=== PATIENT | male | born 1945 | race Caucasian/White ===

== ENCOUNTER 2018-04-28 12:43 | Outpatient (RCR) | payer OTHER | END 2018-04-28 13:34 | disposition home or self-care (01) | PROVIDERS: ATTEND Nurse Practitioner | DX: M54.2 Cervicalgia (principal); M25.511 Pain in right shoulder ==

== ENCOUNTER 2018-12-28 13:00 | Outpatient (CLI) | payer OTHER ==
[~2018-12-28] VITALS: Ht 180.3 cm; Wt 92.6 kg
[2018-12-28] MEDS ORDERED: BUDE10.2 IH (13:07)
[2018-12-28] MEDS ORDERED: IPRA4AER IH (13:07)
== END 2018-12-28 13:08 | disposition home or self-care (01) ==
LOC: PREOP 13:00
PROVIDERS: ATTEND Surgery
DX: Z01.818 Encounter for other preprocedural examination (principal)

== ENCOUNTER 2019-01-02 08:49 | Day surgery (SDC) | payer MEDICARE, OTHER ==
[2019-01-02] VITALS (8 sets, daily range): BP systolic 135–167; BP diastolic 58–72
[~2019-01-02] VITALS: Ht 180.3 cm; Wt 92.6 kg
[~2019-01-02 08:49] MED LIST: BUDE10.2 IH; IPRA4AER IH; LACTATED RINGERS 1,000 ML IV ONE
[2019-01-02] MEDS ORDERED: LACTATED RINGERS 1,000 ML IV STA (08:53)
[2019-01-02] MEDS ORDERED: MIDAZOLAM 2 MG/2 ML (VERSED) VIAL ONE (09:48)
[2019-01-02] MEDS ORDERED: PROPOFOL INJECTION 50 ML IV ONE ×3 (09:48→10:40)
--- NOTE | 2019-01-02 09:51 | Progress Note-Pre Operative ---
Pre-Operative Progress Note H&P Reviewed The H&P was reviewed, patient examined and no changes noted. Time Seen by Provider: 09:18 Date H&P Reviewed: Jan 02, 2019 Time H&P Reviewed: 09:19 Pre-Operative Diagnosis: Screening colonoscopy RADHA BENAVIDES DO Jan 02, 2019 09:51
[2019-01-02] MEDS ORDERED: LACTATED RINGERS 1,000 ML IV ONE (09:54)
--- NOTE | 2019-01-02 10:12 | Anesthesia-General Post-Op ---
MAC Patient Condition Mental Status/LOC: Same as Preop Cardiovascular: Satisfactory Nausea/Vomiting: Absent Respiratory: Satisfactory Pain: Controlled Complications: Absent Post Op Complications Complications None Follow Up Care/Instructions Patient Instructions None needed. Anesthesiology Discharge Order Discharge Order Patient is doing well, no complaints, stable vital signs, no apparent adverse anesthesia problems. No complications reported per nursing. CALLUM RAYA CRNA Jan 02, 2019 10:12
--- NOTE | 2019-01-02 11:04 | Progress Note-Post Operative ---
Post-Operative Progess Note Surgeon (s)/Printed Circuit Boards Solder Leveler (s) Surgeon RADHA BENAVIDES DO Printed Circuit Boards Solder Leveler: Nicho Fernandez, MS III Pre-Operative Diagnosis Screening colonoscopy Post-Operative Diagnosis Colon polyps Diverticula Internal hemorrhoids Procedure & Operative Findings Date of Procedure 01/02/19 Procedure Performed/Findings colon with snare Anesthesia Type IV sedation by AGRICULTURAL REAL ESTATE AGENT Estimated Blood Loss Estimated blood loss (mL): scant Specimens/Packing Specimens Removed polyps RADHA BENAVIDES DO Jan 02, 2019 11:04
--- NOTE | 2019-01-02 11:05 | Endoscopy Discharge Instruct ---
Endo Procedure/Findings Findings 1.: Polyp 2.: Diverticulosis 3.: Internal Hemorrhoids Discharge Instructions - Activity: You might feel a little sleepy until tomorrow. This is due to the medicine you received to relax you. Until tomorrow, you should: NOT drive a car, operate machinery or power tools. NOT drink any alcoholic beverages. NOT make any important decisions or sign importortant papers. Do not return to work until tomorrow, unless otherwise instructed. Resume previous activities tomorrow. Diet: Start by taking liquids. If you tolerate liquids, advance to solid food. make an appointment for one week 1.: Colonoscopy in 1 year Notify Physician - If you experience excessive bleeding, unusual abdominal pain, fever, or chest pain, contact your doctor immediately. RADHA BENAVIDES DO Jan 02, 2019 11:05
--- NOTE | 2019-01-03 08:03 | OPERATIVE REPORT ---
DATE OF SERVICE: 01/02/2019 PREOPERATIVE DIAGNOSIS: Screening colonoscopy. POSTOPERATIVE DIAGNOSES: 1. Colon polyps. 2. Diverticula. 3. Internal hemorrhoids. 4. Possible arteriovenous malformation. PROCEDURE: Colonoscopy with snare polypectomy. SURGEON: Jacky Hollins DO VASCULAR NEUROLOGIST: None. ANESTHESIA: IV sedation by EARLY CHILDHOOD EDUCATION COORDINATOR. SPECIMEN: A 3 polyps from the ascending colon, 6 polyps in the rectum, 1 transverse colon polyp, 1 descending colon and 3 polyps in the sigmoid colon. BLOOD LOSS: Scant. FLUIDS: Per anesthesia. POSTOPERATIVE CONDITION: Stable. INDICATION FOR PROCEDURE: The patient is a 73-year-old male, who has never had a colonoscopy, needs one for screening. FINDINGS: The patient had what looked like an AVM in the cecum. He also had multiple polyps, 2 very large ones. We took a total of 14 polyps out. He also had diverticula and some internal hemorrhoids. PROCEDURE NOTE: After informed consent was obtained, the patient was brought to the endoscopy suite, placed in the left lateral decubitus position. He was administered IV sedation by the EARLY CHILDHOOD EDUCATION COORDINATOR who then monitored his vitals the entire time, heart rate, blood pressure and pulse ox. A scope was inserted. Immediately upon entry, noted some small polyps in the rectum and then noted some large polyps in the sigmoid and descending colon, elected to continue all the way up to get to the cecum. In the sigmoid and descending colon, saw some diverticula, took picture of this, able to push all the way into about 150 cm, get to the cecum, took a picture of appendiceal orifice, noted the ileocecal valve and then slowly withdrew the scope, insufflating the circumferential wall looking at the cecum, up into the descending colon and just outside the cecum and ascending colon, saw 3 polyps. Elected to do snare polypectomy and did a snare polypectomy and all 3 of these and suctioned two of them and then the other one was too large to suction out, so I had to pull the scope all the way out with polyps sucked up to the scope, pulled it all the way up to the anus and then passed this off table, reinserted the scope all the way up to the ascending colon and then slowly started withdrawing it up the ascending colon to the hepatic flexure into the transverse colon and transverse colon, saw one large flat polyp, I elected to do a snare polypectomy. I was actually able to suction this out and then continued down to the splenic flexure, into the descending colon and descending colon, saw a large polyp on a stalk, did a snare polypectomy of this and then suctioned this up to the scope and pulled the scope all the way out and then took the polyp off and then continued back up to the point in the descending colon and continued down in the sigmoid. In the sigmoid, saw 3 polyps, two of them are small, one of them was large, able to suction 2 small wounds up and then pulled the large one and pulled the scope completely out and then to go back in and then into the rectum and in the rectum, saw 5 small polyps, here I elected to do a snare polypectomy of them, one large only we had to suction it up to the scope and pulled all the way out and then put the scope back in retroflexed in the rectal vault, saw some internal hemorrhoids, took a picture of this and then removed the scope. The patient tolerated the procedure and recovered in endoscopy suite. Job ID: [id number] DocumentID: [id number] Dictated Date: 01/02/2019 17:36:24 Architectural Examiner Date: 01/03/2019 01:24:51 Dictated By: JACKY HOLLINS DO
== END 2019-01-02 12:00 | disposition home or self-care (01) ==
LOC: ENDO 08:49
PROVIDERS: ATTEND Surgery
DX: Z12.11 Encounter for screening for malignant neoplasm of colon (principal); K63.5 Polyp of colon; D12.5 Benign neoplasm of sigmoid colon; K62.1 Rectal polyp; K57.30 Diverticulosis of large intestine without perforation or abscess without bleeding; K64.8 Other hemorrhoids; M19.90 Unspecified osteoarthritis, unspecified site; F17.210 Nicotine dependence, cigarettes, uncomplicated; Z80.9 Family history of malignant neoplasm, unspecified; Z82.49 Family history of ischemic heart disease and other diseases of the circulatory system; Z81.8 Family history of other mental and behavioral disorders

== ENCOUNTER 2019-01-17 12:21 | Outpatient (CLI) | payer OTHER ==
[~2019-01-17] VITALS: Ht 180 cm; Wt 91.9 kg
[~2019-01-17 12:21] MED LIST changes: -LACTATED RINGERS 1,000 ML IV ONE
[2019-01-17 12:31] VITALS: BP 151/77
[2019-01-17 13:40] LABS: BASOPHILS # (AUTO) 0.1 10^3/uL (0.0-0.1); BASOPHILS % (AUTO) 1 % (0-10); EOSINOPHILS # (AUTO) 0.1 10^3/uL (0.0-0.3); EOSINOPHILS % (AUTO) 1 % (0-10); HEMATOCRIT 46 % (40-54); HEMOGLOBIN 15.7 G/DL (13.3-17.7); LYMPHOCYTES # (AUTO) 2.2 X 10^3 (1.0-4.0); LYMPHOCYTES % (AUTO) 29 % (12-44); MEAN CORPUSCULAR HEMOGLOBIN 32 PG (25-34); MEAN CORPUSCULAR HGB CONC 34 G/DL (32-36); MEAN CORPUSCULAR VOLUME 93 FL (80-99); MEAN PLATELET VOLUME 13.6 FL (7.4-10.4); MONOCYTES # (AUTO) 1.2 X 10^3 (0.0-1.0); MONOCYTES % (AUTO) 16 % (0-12); NEUTROPHILS # (AUTO) 4.1 X 10^3 (1.8-7.8); NEUTROPHILS % (AUTO) 54 % (42-75); PLATELET COUNT 142 10^3/uL (130-400); RED CELL DISTRIBUTION WIDTH 14.9 % (10.0-14.5); WHITE BLOOD COUNT 7.7 10^3/uL (4.3-11.0)
== END 2019-01-17 15:30 | disposition home or self-care (01) ==
LOC: PREOP 12:21
PROVIDERS: ATTEND Surgery
DX: Z01.812 Encounter for preprocedural laboratory examination (principal); C18.9 Malignant neoplasm of colon, unspecified
CPT/HCPCS: 36415; 85025; 86850; 86900; 86901; 87081

== ENCOUNTER 2019-01-19 09:35 | Inpatient (IN) | payer OTHER ==
[2019-01-19] VITALS (12 sets, daily range): BP systolic 111–174; BP diastolic 65–93
[~2019-01-19] VITALS: Ht 180 cm; Wt 99.6 kg
[2019-01-19] MEDS ORDERED: ceFAZolin 2 GM IV Premixed 50 ML IV ONE (10:00)
[2019-01-19] MEDS ORDERED: CATHETER FLUSH 10 ML SYR IV PRN (10:00)
[2019-01-19] MEDS: LACTATED RINGERS 1,000 ML IV PRN ×4 (10:45→15:41)
[2019-01-19] MEDS ORDERED: ONDANSETRON 4 MG/2 ML (SDV) Z0FRAN ONE (11:21)
[2019-01-19] MEDS ORDERED: DEXAMETHASONE 10 MG/ML (DECADRON) 1 ML VIAL ONE (11:21)
[2019-01-19] MEDS ORDERED: SEVOFLURANE (ULTANE) 15 ML INHAL SOLN ONE ×5 (11:21→14:36)
[2019-01-19] MEDS ORDERED: fentaNYL INJECTION 100 MCG/2 ML AMP ONE (11:21)
[2019-01-19] MEDS ORDERED: proPOfol 200 MG/20 ML (DIPRIVAN) VIAL IV ONE (11:21)
[2019-01-19] MEDS ORDERED: LIDOCAINE PF 2% 5 ML (XYLOCAINE) VIAL ONE (11:21)
[2019-01-19] MEDS ORDERED: ROCURONIUM 10 MG/ML 5 ML SYRINGE IV ONE ×2 (11:21→14:01)
[2019-01-19] MEDS ORDERED: BUP/EPI 0.5% 1:200,000 (SENSORCAINE) 30 ML VIAL ONE (11:38)
[2019-01-19] MEDS ORDERED: HYDROmorphone 2 MG/ML VIAL (DILAUDID) ONE (13:29)
[2019-01-19] MEDS ORDERED: NEOSTIGMINE 3 MG/3 ML VIAL ONE (14:36)
[2019-01-19] MEDS ORDERED: GLYCOPYRROLATE 0.2 MG/ML (ROBINUL) 2 ML VIAL ONE (14:36)
[2019-01-19] MEDS ORDERED: BUPIVACAINE 0.5% 30 ML (SENSORCAINE) VIAL ONE (14:36)
[2019-01-19] MEDS ORDERED: ONDANSETRON 4 MG/2 ML (SDV) Z0FRAN IVP PRN (16:00)
[2019-01-19] MEDS ORDERED: HYDROmorphone 2 MG/ML VIAL (DILAUDID) IV ONE (16:00)
[2019-01-19] MEDS ORDERED: morphine INJ 10 MG/ML 1ML (SYR OR VIAL) IVP ONE (16:00)
[2019-01-19] MEDS ORDERED: MEPERIDINE (DEMEROL) INJ 50 MG/ML IVP ONE (16:00)
--- NOTE | 2019-01-19 16:43 | Progress Note-Pre Operative ---
Pre-Operative Progress Note H&P Reviewed The H&P was reviewed, patient examined and no changes noted. Time Seen by Provider: 11:01 Date H&P Reviewed: Jan 19, 2019 Time H&P Reviewed: 11:02 Pre-Operative Diagnosis: Descending colon CA RADHA BENAVIDES DO Jan 19, 2019 16:43
--- NOTE | 2019-01-19 16:44 | Progress Note-Post Operative ---
Post-Operative Progess Note Surgeon (s)/Director Health (s) Surgeon RADHA BENAVIDES DO Director Health: Lizbeth Pre-Operative Diagnosis Descending colon CA Post-Operative Diagnosis same pending path Procedure & Operative Findings Date of Procedure 01/19/19 Procedure Performed/Findings Lap hand assisted Left colon resection Anesthesia Type GET Estimated Blood Loss Estimated blood loss (mL): less than 100ml Specimens/Packing Specimens Removed Descending colon and sigmoid RADHA BENAVIDES DO Jan 19, 2019 16:44
[2019-01-19] MEDS ORDERED: morphine INJ 4 MG/ML 1 ML (VIAL/SYRINGE) IVP PRN (16:45)
--- NOTE | 2019-01-19 16:55 | NUR ---
TRANSFERRED FROM [facility] PER BED. X [address] [facility]. [employer]. [facility] TO [facility]. WITH ISLAND DRESSING WITH SHADING OF REDDISH DRAINAGE. CHERR Addendum: 01/19/19 at 2013 by MARY MALLORY RN ALERT AND COOPERATIVE. DENIES PAIN AT THIS TIME. AT BEDSIDE. ICE TO ABD. INC. AREA. DEEP BREATHING ENCOURAGED. RICHEY CATH WITH CLEAR YELLOW URINE NOTED. SALINE LOCK TO RIGHT F/A.. IV FLUIDS TO LEFT F/A.
--- NOTE | 2019-01-19 17:51 | Anesthesia-General Post-Op ---
General Patient Condition Mental Status/LOC: Same as Preop Cardiovascular: Satisfactory Nausea/Vomiting: Absent Respiratory: Satisfactory Pain: Controlled Complications: Absent Post Op Complications Complications None Follow Up Care/Instructions Patient Instructions None needed. Anesthesia/Patient Condition Patient Condition Patient is doing well, no complaints, stable vital signs, no apparent adverse anesthesia problems. No complications reported per nursing. ANSON KNOX CRNA Jan 19, 2019 17:51
[2019-01-19] MEDS: KETOROLAC 30 MG/ML VIAL IVP SCH ×2 (17:53→23:53)
[2019-01-19] MEDS: ACETAMINOPHEN 500 MG TAB (TYLENOL) PO SCH (17:54)
[2019-01-19] MEDS: ENOXAPARIN 40 MG/0.4 ML (LOVENOX) SYR SC SCH (17:54)
[2019-01-19] MEDS: LACTATED RINGERS 1,000 ML IV SCH (17:54)
[2019-01-19] MEDS: ceFAZolin 2 GM IV Premixed 50 ML IV SCH (20:18)
[2019-01-20 00:20] VITALS: BP 119/70
--- NOTE | 2019-01-20 01:28 | OPERATIVE REPORT ---
DATE OF SERVICE: 01/19/2019 PREOPERATIVE DIAGNOSIS: Descending colon cancer. POSTOPERATIVE DIAGNOSIS: Descending colon cancer, pending pathology. PROCEDURE: 1. Laparoscopic hand assisted left colon resection. 2. Takedown of splenic flexure. SURGEON: Radha Hollins DO PEDIATRIC PHYSICAL THERAPIST: Son Nieves DO ANESTHESIA: General endotracheal tube. SPECIMEN: Portion of sigmoid colon and descending colon. BLOOD LOSS: Less than 100 mL. FLUIDS: Per anesthesia. POSTOPERATIVE CONDITION: Stable. INDICATION FOR PROCEDURE: The patient is a 73-year-old male, who unfortunately had a colonoscopy with removal of a polyp, which turned out to be cancer. FINDINGS: The patient had a colon removed and sent to pathology. PROCEDURE NOTE: After informed consent was obtained, the patient was brought to the operating room, placed on the table in lithotomy position. He was sterilely prepped and draped in normal fashion. I made an incision in the midline from just below his umbilicus with a #15 blade, carried down through the skin into subcutaneous tissue, deepened down through subcutaneous tissue with Bovie electrocautery down to fascia. Fascia was incised with Bovie electrocautery and bluntly entered the abdomen, swept a finger around and increased this incision superiorly and inferiorly enough to be able to get my hand in there and then placed a wound protector and then attached a Gelfoam port to this. Just prior to this in the right lower quadrant, infiltrated the skin with local, made an incision with #11 blade and then placed the VersaStep system under direct visualization with a malleable to protect the bowel. This was placed easily and then placed the trocar port. I then placed a GelPort and then created pneumoperitoneum and then placed the port in the left lower quadrant. Again using local lidocaine, 11 blade for stab incision and VersaStep system, all done under direct visualization. The patient was placed slightly Trendelenburg. He had a lot of adhesions, the colon was attached to the left side. I started taking these down with blunt dissection as well as Bovie electrocautery going along the white line of Toldt and then dissecting up and going up and around, taking down the splenic flexure, coming through the splenocolic ligament, rotating everything into the midline using blunt dissection and LigaSure to help move this in. Once we felt like we got it freed up enough then picked a point right at the sacral promontory and got under the distal portion of sigmoid and possibly high rectal area under the mesentery, through the mesentery with blunt dissection and then brought a AMALIA 60 in across, clamped and fired without almost all except for the small corners, so I put another Endo AMALIA 45 across the corner and then removed this. Then started coming up the mesentery, removing the mesentery of the sigmoid and descending colon with the LigaSure, clamping, coagulating and transecting and in a stepwise fashion coming all the way up to about 4 to 6 cm below the splenic flexure, came across it and elected once we had freed all this up, opened the Gelport and brought this out through the abdominal wall and then came across this with a AMALIA, removed this. I then went off the back table to look and found the old site, marked this and marked the proximal edge of the colon as well. Then using a pursestring applicator to the most proximal portion of the descending colon, placed a pursestring and then placed a 28 mm anvil in here, sutured in place with a pursestring, had to do a little bit more dissection to help bring this down to be able to get this down into the pelvis, I then came down in the pelvis, but relatively easily I went down below, dilated the rectum and the anus with 25, 28 and then 31 dilator and then brought in the 28 EEA stapler, came up to the previous staple line and then brought the trocar through. Dr. Nieves , it was up above. He then attached the anvil to the trocar. We then tightened this down until it was in the green line, held for 30 seconds and then fired, held for 20 seconds and then carefully turned the stapler device to full turns and then easily removed the anvil. When it came out, we had 2 good donuts. At this point, then placed a rigid sigmoidoscope and insufflated with air and had fluid in the pelvis, thought maybe we had seen some bubbles, but then may have just come from under the intestine because when we kept insufflated, there was no more bubbles coming out, so there is no leaks at this point and we looked again after suctioning all the fluid out, looked at the staple line. The staple line looked good. Two pieces of intestine looked viable. During this time, the patient had been in Trendelenburg. He was placed supine, removed all ports under direct visualization, closed the midline incision with a #1 double stranded PDS suture running from superior portion to inferior portion tying to itself, copiously irrigated all incisions with normal saline and then closed all incisions with ping. Area was cleaned and dried, dressing was placed. The patient tolerated the procedure and transferred to recovery room in stable condition. Sponge, instrument and needle count correct at the end of the case. Dr. Nieves assisted in this case helping to make incisions, close incisions, identify anatomy, hold anatomy out of the way. Job ID: [id number] DocumentID: [id number] Dictated Date: 01/19/2019 18:41:57 Foot Miter Operator Date: 01/20/2019 00:03:11 Dictated By: RADHA HOLLINS DO
[2019-01-20] MEDS: ACETAMINOPHEN 500 MG TAB (TYLENOL) PO SCH ×3 (01:46→17:04)
[2019-01-20] MEDS: LACTATED RINGERS 1,000 ML IV SCH ×3 (01:48→18:05)
[2019-01-20 04:10] VITALS: BP 135/73
[2019-01-20] MEDS: KETOROLAC 30 MG/ML VIAL IVP SCH ×4 (05:13→23:12)
[2019-01-20] MEDS: ceFAZolin 2 GM IV Premixed 50 ML IV SCH (05:14)
[2019-01-20 07:48] VITALS: BP 147/73
[2019-01-20 11:33] VITALS: BP 150/69
--- NOTE | 2019-01-20 13:57 | Progress Note - Surgery ---
MACO BELL,MED STUDENT 01/20/19 1357: Subjective Date Seen by a Provider: Jan 20, 2019 Time Seen by a Provider: 07:15 Subjective/Events-last exam Patient seen and examined. 1 day S/P left colon resection. He states he feels well this morning. He has abdominal pain that is a 3/10 on the pain scale. He has not passed gas or had a bowel movement at this time. He denies any nausea or vomiting and states he has been tolerated the clear liquid diet well. Review of Systems General: No Chills, No Fatigue Pulmonary: No Dyspnea, No Cough Cardiovascular: No: Chest Pain Gastrointestinal: Abdominal Pain; No: Nausea, Vomiting, Diarrhea Genitourinary: No Dysuria, No Incontinence, No Hematuria Neurological: No: Weakness, Numbness, Confusion Objective Exam Vital Signs Date Time Temp Pulse Resp B/P (MAP) Pulse Ox O2 Delivery O2 Flow Rate FiO2 01/20/19 11:33 36.5 79 18 150/69 (96) 96 Room Air 01/20/19 09:00 95 Room Air 01/20/19 07:48 35.8 87 22 147/73 (97) 97 Nasal Cannula 1.00 01/20/19 04:10 36.6 80 18 135/73 (93) 96 Room Air 01/20/19 00:20 36.9 85 20 119/70 (86) 96 Room Air 01/19/19 21:00 Nasal Cannula 2.00 01/19/19 20:59 36.3 96 20 143/67 (92) 97 Room Air 01/19/19 19:30 Nasal Cannula 2.00 01/19/19 17:29 36.0 100 20 174/85 97 Room Air 01/19/19 17:13 36.0 100 20 174/85 (114) 97 Room Air 01/19/19 16:50 36.0 100 20 174/85 (114) 97 Nasal Cannula 2.00 01/19/19 16:50 Nasal Cannula 2 01/19/19 16:40 36.7 9 168/92 (117) 97 Nasal Cannula 2 01/19/19 16:30 12 158/86 (110) 100 OxyMask 10 01/19/19 16:20 12 172/93 (119) 100 OxyMask 10 01/19/19 16:20 OxyMask 10 01/19/19 16:10 12 135/71 (92) 96 OxyMask 10 01/19/19 16:00 11 136/67 (90) 95 OxyMask 10 01/19/19 15:55 13 134/70 (91) 97 OxyMask 10 01/19/19 15:47 OxyMask 10 01/19/19 15:47 36.8 14 111/65 (80) 96 OxyMask 10 I & O 01/20/19 07:00 Intake Total 6580 ml Output Total 1200 ml Balance 5380 ml Capillary Refill : General Appearance: No Apparent Distress, WD/WN HEENT: PERRL/EOMI, Moist Mucous Membranes Neck: Non Tender Respiratory: Lungs Clear, Normal Breath Sounds, No Accessory Muscle Use Cardiovascular: Regular Rate, Rhythm, No Murmur Peripheral Pulses: 2+ Radial Pulses (R), 2+ Radial Pulses (L) Gastrointestinal: normal bowel sounds; No guarding, No rebound; tenderness (mildly tender and slightly firm) Extremity: No Calf Tenderness, No Pedal Edema Neurologic/Psychiatric: Alert, Oriented x3 Skin: Normal Color, Other (midline abdominal incision closed with ping) Assessment/Plan Assessment/Plan Assessment/Plan S/P left colon resection Continue pain control and IVF as needed. Encouraged use of incentive spirometer and increased ambulation. Will increase diet as tolerated and await return of bowel function. Discussed smoking cessation. Follow-up with Dr. Hollins in the clinic next week Clinical Quality Measures DVT/VTE Risk/Contraindication: Risk Factor Score Per Nursin RFS Level Per Nursing on Admit: 3=High JACKY HOLLINS DO 01/20/19 1432: Subjective Time Seen by a Provider: 10:50 Subjective/Events-last exam Pt was asking when he coudl go home, tolerating clears and wondering about increasing diet. Objective Exam Gastrointestinal: soft; No distended Assessment/Plan Assessment/Plan Assessment/Plan increase ambulation and IS use, will increase diet, possibly home tomorrow if his pain is controlled with oral meds. Supervisory-Addendum Brief Verification & Attestation Participated in pt care: history, MDM, physical Personally performed: exam, history, MDM Care discussed with: Medical Student Procedures: n/a Verification and Attestation of Medical Student E/M Service A medical student performed and documented this service in my presence. I reviewed and verified all information documented by the medical student and made modifications to such information, when appropriate. I personally performed the physical exam and medical decision making. Jacky Hollins, Jan 20, 2019,14:32 MACO BELL,MED STUDENT Jan 20, 2019 13:57 JACKY HOLLINS DO Jan 20, 2019 14:32
--- NOTE | 2019-01-20 16:00 | NUR ---
MOD. AMT. BLEEDING FROM MIDLINE INC. BABATUNDE CLEAR WITH MILD BLEEDING NOTED FROM LOWER INC. AREA. DRESSING CHANGED WITH FOLDED 4 X 4'S AND ISLAND DRESSING.
[2019-01-20 16:20] VITALS: BP 139/51
--- NOTE | 2019-01-20 16:31 | NUR ---
Pastoral care visit.
--- NOTE | 2019-01-20 17:30 | NUR ---
MOD. AMT. BLEEDING FROM INC. AREA. DRESSING CHANGED . DR. BENAVIDES NOTIFIED, LOVEJONX DC'D PER ORDERS. DR. BENAVIDES STATED TO CONTINUE THE TORADOL IV ORDERED.
[2019-01-20] MEDS: ENOXAPARIN 40 MG/0.4 ML (LOVENOX) SYR SC SCH (18:05)
[2019-01-20 19:35] VITALS: BP 128/69
[2019-01-21] VITALS: BP 142/80
[2019-01-21] MEDS: ACETAMINOPHEN 500 MG TAB (TYLENOL) PO SCH ×2 (01:50→09:49)
[2019-01-21 04:00] VITALS: BP 144/78
[2019-01-21] MEDS: KETOROLAC 30 MG/ML VIAL IVP SCH ×2 (04:54→10:50)
[2019-01-21 08:00] VITALS: BP 167/77
--- NOTE | 2019-01-21 08:36 | Progress Note - Surgery ---
MACO BELL,MED STUDENT 01/21/19 0836: Subjective Date Seen by a Provider: Jan 21, 2019 Time Seen by a Provider: 07:15 Subjective/Events-last exam Day 2 S/P left colon resection. Patient seen and examined. Mr Galloway states he is feeling well this morning. He has 2 bowel movements overnight and 1 this morning. He has been up several times ambulating the halls and states he has continues to use his IS. He notes some abdominal pain that is a 2-3/10 on the pain scale and worsened with coughing. He denies and nausea/vomiting and states he is tolerating his clear liquid diet well at this time. Review of Systems General: No Chills, No Fatigue HEENT: No Head Aches Pulmonary: No Dyspnea; Cough (chronic) Cardiovascular: No: Chest Pain, Lt Headedness Gastrointestinal: Abdominal Pain; No: Nausea, Vomiting, Diarrhea, Constipation Genitourinary: No Dysuria, No Incontinence, No Hematuria Neurological: No: Weakness, Confusion Objective Exam Vital Signs Date Time Temp Pulse Resp B/P (MAP) Pulse Ox O2 Delivery O2 Flow Rate FiO2 01/21/19 04:00 36.8 84 18 144/78 (100) 94 Room Air 01/21/19 00:00 36.8 81 16 142/80 (100) 95 Room Air 01/20/19 20:10 Room Air 01/20/19 19:35 36.8 81 18 128/69 (88) 95 Room Air 01/20/19 16:20 37.0 85 20 139/51 (80) 95 Room Air 01/20/19 11:33 36.5 79 18 150/69 (96) 96 Room Air 01/20/19 09:00 95 Room Air I & O 01/21/19 07:00 Intake Total 1510 ml Output Total 400 ml Balance 1110 ml Capillary Refill : General Appearance: No Apparent Distress, WD/WN HEENT: PERRL/EOMI, Moist Mucous Membranes Neck: Non Tender Respiratory: Chest Non Tender, Lungs Clear, Normal Breath Sounds, No Accessory Muscle Use Cardiovascular: Regular Rate, Rhythm, No Murmur Peripheral Pulses: 2+ Radial Pulses (R), 2+ Radial Pulses (L) Gastrointestinal: normal bowel sounds; No distended, No guarding, No rebound, No tenderness; other (mild firmness ) Extremity: No Calf Tenderness, No Pedal Edema Neurologic/Psychiatric: Alert, Oriented x3 Skin: Normal Color, Other (midline abdominal incision closed with ping) Assessment/Plan Assessment/Plan Assessment/Plan S/P Left Colon Resection Continue pain control as needed. Encouraged increase use of IS and increase in ambulation. Increase diet as tolerated. Follow-up with Dr. Hollins in clinic in 1 week Clinical Quality Measures DVT/VTE Risk/Contraindication: Risk Factor Score Per Nursin RFS Level Per Nursing on Admit: 3=High NICHOLAS LUQUE DO 01/21/19 1438: Subjective Subjective/Events-last exam having bm. tolerating diet. +bm and flatus. pain controlled. no n/v fever sweats chills shortness of breath or chest pain. wanting to go home. Objective Exam General Appearance: No Apparent Distress, WD/WN HEENT: PERRL/EOMI Neck: Full Range of Motion, Non Tender Respiratory: Chest Non Tender, No Accessory Muscle Use, No Respiratory Distress Cardiovascular: Regular Rate, Rhythm Gastrointestinal: normal bowel sounds, soft, tenderness (incisional minimal, incisons c/d/i) Neurologic/Psychiatric: Alert, Oriented x3 Skin: Normal Color Lymphatic: No Adenopathy Assessment/Plan Assessment/Plan Assessment/Plan S/P Left Colon Resection Continue pain control as needed. Encouraged increase use of IS and increase in ambulation. Increase diet as tolerated. If tolerates diet can dc home and follow-up with Dr. Hollins in clinic in 1 week Supervisory-Addendum Brief Verification & Attestation Participated in pt care: history, MDM, physical Personally performed: exam, history, MDM, supervision of care Care discussed with: Medical Student Procedures: n/a Results interpretation: Verified all documentation Verification and Attestation of Medical Student E/M Service A medical student performed and documented this service in my presence. I reviewed and verified all information documented by the medical student and made modifications to such information, when appropriate. I personally performed the physical exam and medical decision making. Nicholas Luque, Jan 21, 2019,14:38 MACO BELLMED STUDENT Jan 21, 2019 08:36 NICHOLAS LUQUE DO Jan 21, 2019 14:38
[2019-01-21] MEDS: LACTATED RINGERS 1,000 ML IV SCH (09:46)
[2019-01-21] MEDS ORDERED: HYDROcodone/APAP 5 MG/325 MG (LORTAB) TAB PO PRN (10:45)
[2019-01-21 12:00] VITALS: BP 141/67
[2019-01-21] MEDS ORDERED: DOCU-143 PO (13:19)
[2019-01-21] MEDS ORDERED: ACHD5005 PO (13:19)
--- NOTE | 2019-01-21 13:20 | Discharge Inst-Simple/Standard ---
Discharge Inst-Standard Discharge Medications New, Converted or Re-Newed RX: RX on Chart Patient Instructions/Follow Up Plan of Care/Instructions/FU: [address] Hollins Activity as Tolerated: No Discharge Diet: Soft Diet Other Inst to Patient Follow up Appt: Make appointment for 1 week. Instructions: No lifting greater than 10 pounds. No strenuous activity. May shower in 24 hours, no tub bath or soaking. Use incentive spirometer at home as directed. No Smoking Skin/Wound Care: May remove bandages. Keep area clean and dry. Symptoms to Report: Appetite Changes, Extremity Discoloration, Numbness/Tingling, Swelling Increased, Bleeding Excessive, Eyesight Changes, Pain Increased, Urine Color Change, Constipation(Persistent), Fever over 101 degree F, Pain/Pressure in chest, Urinating Difficulty, Cough Up/Vomit Blood, Heart Beat Irreg/Pounding, Pain/Pressure in jaw, Vaginal Bleeding Increase, Cramps in feet or legs, Li ghtheadedness, Pain/Pressure in shoulder, Diarrhea(Persistent), Memory Changes Suddenly, Questions/Concerns, Weight gain consecutive days, Dizziness/Fainting, Nausea/Vomiting, Shortness of Breath, Weight gain over 2 pounds If questions or concerns contact your physician Or seek help at emergency department. NICHOLAS LUQUE DO Jan 21, 2019 13:20
== END 2019-01-21 14:20 | disposition home or self-care (01) | DRG 331 ==
LOC: 4TH 09:35 → SURG 09:36 → 4TH 16:49
PROVIDERS: ADMIT Surgery; ATTEND Surgery
PROC: 0DNG0ZZ Release Left Large Intestine, Open Approach (ICD-10-PCS; principal; 2019-01-19 12:53)
PROC: 0DTG0ZZ Resection of Left Large Intestine, Open Approach (ICD-10-PCS; principal; 2019-01-19 12:53)
DX: C18.6 Malignant neoplasm of descending colon (principal); F17.210 Nicotine dependence, cigarettes, uncomplicated
CPT/HCPCS: 86850; 86900; 86901; 94664

== ENCOUNTER 2019-02-09 13:12 | Outpatient (RCR) | payer OTHER ==
[~2019-02-09 13:12] MED LIST changes: +ACHD5005 PO; +DOCU-143 PO
[2019-02-09 14:36] LABS: BASOPHILS % (AUTO) 1 % (0-10); EOSINOPHILS # (AUTO) 0.1 10^3/uL (0.0-0.3); EOSINOPHILS % (AUTO) 1 % (0-10); HEMATOCRIT 42 % (40-54); LYMPHOCYTES # (AUTO) 1.9 X 10^3 (1.0-4.0); LYMPHOCYTES % (AUTO) 23 % (12-44); MEAN CORPUSCULAR HEMOGLOBIN 31 PG (25-34); MEAN CORPUSCULAR HGB CONC 33 G/DL (32-36); MEAN CORPUSCULAR VOLUME 93 FL (80-99); MEAN PLATELET VOLUME 12.4 FL (7.4-10.4); MONOCYTES # (AUTO) 1.3 X 10^3 (0.0-1.0); MONOCYTES % (AUTO) 16 % (0-12); NEUTROPHILS # (AUTO) 4.9 X 10^3 (1.8-7.8); NEUTROPHILS % (AUTO) 60 % (42-75); PLATELET COUNT 168 10^3/uL (130-400); RED CELL DISTRIBUTION WIDTH 14.5 % (10.0-14.5); WHITE BLOOD COUNT 8.2 10^3/uL (4.3-11.0)
[2019-02-09 15:00] LABS: ALANINE AMINOTRANSFERASE 27 U/L (0-55); ALBUMIN 3.9 GM/DL (3.2-4.5); ALKALINE PHOSPHATASE 80 U/L (40-136); BILIRUBIN,TOTAL 0.4 MG/DL (0.1-1.0); BUN/CREATININE RATIO 16; CALCIUM 9.4 MG/DL (8.5-10.1); CARBON DIOXIDE 23 MMOL/L (21-32); CHLORIDE 103 MMOL/L (98-107); CREATININE SERUM 0.85 MG/DL (0.60-1.30); GFR ESTIMATED > 60; GLUCOSE 102 MG/DL (70-105); POTASSIUM 4.3 MMOL/L (3.6-5.0); SODIUM 137 MMOL/L (135-145); TOTAL PROTEIN 7.3 GM/DL (6.4-8.2)
== END 2019-04-24 14:46 | disposition home or self-care (01) ==
LOC: ONC 13:12
PROVIDERS: ATTEND Internal Medicine Hematology & Oncology
DX: C18.6 Malignant neoplasm of descending colon (principal)
CPT/HCPCS: 36415; 80053; 82378; 85025; 99214

== ENCOUNTER → 2019-02-13 | Outpatient (CLI) | payer OTHER ==
[~2019-02-13] MED LIST changes: +CATHETER FLUSH 10 ML SYR IV PRN; +HOLD METFORMIN - RECEIVED CONTRAST 20 ML VIAL IV SCH; +IOHEXOL 350 MG/ML 100 ML (OMNIPAQUE 350) VIAL IV ONE; +NS 100 ML (IVPB) BAG IV ONE
--- NOTE | 2019-02-13 13:38 | Diagnostic Imaging Report ---
PROCEDURE: CT chest with contrast, CT abdomen and pelvis with and without contrast. TECHNIQUE: Pre and post intravenous contrast axial imaging of the abdomen and pelvis and post contrast axial imaging of the chest were performed. Auto Exposure Controls were utilized during the CT exam to meet ALARA standards for radiation dose reduction. INDICATION: Followup colectomy for colon cancer. COMPARISON: None. FINDINGS: CT CHEST: The heart size is within normal limits. No pericardial effusion is present. There is calcified aortic and coronary atherosclerotic plaque without aneurysm. There is no mediastinal, hilar, or axillary lymphadenopathy. A 0.2 cm nodule is seen in the right midlung (image 38/series 3). No suspicious pulmonary nodules are visualized. No focal consolidation or pulmonary mass. No pneumothoraces are present. No central endobronchial obstructing lesions are identified. There are no pleural effusions. The osseous structures demonstrate degenerative changes without focal lytic or blastic lesions. CT ABDOMEN AND PELVIS: A nodule is seen in the right adrenal gland measuring 2.0 cm demonstrating fat density on noncontrast CT. Two small nodules are seen in the left adrenal gland, both measuring 1.1 cm. The liver, spleen, pancreas, and kidneys have a normal appearance. There is no pathologically enlarged mesenteric or retroperitoneal adenopathy. Post surgical changes of sigmoid colon resection are visualized. No evidence of bowel obstruction. No free fluid or free air is seen in the abdomen or pelvis. No evidence of pathologically enlarged lymphadenopathy. There is calcified aortic and iliac atherosclerotic plaque without evidence of aneurysm. A retroaortic left renal vein is noted. Inflammatory changes are noted in the superficial soft tissues of the left abdomen, likely representing recent surgical changes. No fluid collections are seen to suggest an abscess. The osseous structures are age-appropriate. The ureters and bladder are grossly normal. There is no free air, loculated collection, or adenopathy in the pelvis. IMPRESSION: 1. Post surgical changes of sigmoid colon resection. No evidence of bowel obstruction. No free fluid or free air is seen in the abdomen or pelvis. No pathologically enlarged lymphadenopathy is present. No evidence of metastatic disease. 2. Bilateral adrenal nodules, likely representing adenomas. Consider followup CT of the abdomen in 6 months with adrenal protocol. 3. A 0.2 cm pulmonary nodule in the right midlung is favored to represent benign etiology. No suspicious pulmonary nodules. No lymphadenopathy in the chest. Dictated by: Dictated on workstation # [id number]
== END ==
LOC: RAD FS 10:57
PROVIDERS: ATTEND Internal Medicine Hematology & Oncology
DX: C18.6 Malignant neoplasm of descending colon (principal); R91.1 Solitary pulmonary nodule; Z90.49 Acquired absence of other specified parts of digestive tract; Z98.890 Other specified postprocedural states
CPT/HCPCS: 71260; 74178

== ENCOUNTER 2019-08-10 10:48 | Outpatient (RCR) | payer OTHER ==
[~2019-08-10 10:48] MED LIST changes: -CATHETER FLUSH 10 ML SYR IV PRN; -HOLD METFORMIN - RECEIVED CONTRAST 20 ML VIAL IV SCH; -IOHEXOL 350 MG/ML 100 ML (OMNIPAQUE 350) VIAL IV ONE; -NS 100 ML (IVPB) BAG IV ONE
[2019-08-10 11:02] LABS: BASOPHILS # (AUTO) 0.1 10^3/uL (0.0-0.1); BASOPHILS % (AUTO) 1 % (0-10); EOSINOPHILS # (AUTO) 0.1 10^3/uL (0.0-0.3); EOSINOPHILS % (AUTO) 1 % (0-10); HEMATOCRIT 47 % (40-54); HEMOGLOBIN 15.8 G/DL (13.3-17.7); LYMPHOCYTES # (AUTO) 1.9 X 10^3 (1.0-4.0); LYMPHOCYTES % (AUTO) 22 % (12-44); MEAN CORPUSCULAR HEMOGLOBIN 31 PG (25-34); MEAN CORPUSCULAR HGB CONC 34 G/DL (32-36); MEAN CORPUSCULAR VOLUME 94 FL (80-99); MEAN PLATELET VOLUME 12.4 FL (7.4-10.4); MONOCYTES # (AUTO) 1.4 X 10^3 (0.0-1.0); MONOCYTES % (AUTO) 16 % (0-12); NEUTROPHILS # (AUTO) 5.3 X 10^3 (1.8-7.8); NEUTROPHILS % (AUTO) 61 % (42-75); PLATELET COUNT 159 10^3/uL (130-400); RED CELL DISTRIBUTION WIDTH 14.9 % (10.0-14.5); WHITE BLOOD COUNT 8.7 10^3/uL (4.3-11.0)
[2019-08-10 11:30] LABS: ALANINE AMINOTRANSFERASE 18 U/L (0-55); ALBUMIN 4.3 GM/DL (3.2-4.5); ALKALINE PHOSPHATASE 71 U/L (40-136); BILIRUBIN,TOTAL 0.6 MG/DL (0.1-1.0); BUN/CREATININE RATIO 13; CALCIUM 9.4 MG/DL (8.5-10.1); CARBON DIOXIDE 18 MMOL/L (21-32); CHLORIDE 102 MMOL/L (98-107); CREATININE SERUM 0.94 MG/DL (0.60-1.30); GFR ESTIMATED > 60; GLUCOSE 99 MG/DL (70-105); POTASSIUM 4.2 MMOL/L (3.6-5.0); SODIUM 135 MMOL/L (135-145); TOTAL PROTEIN 7.9 GM/DL (6.4-8.2)
== END 2019-11-08 | disposition home or self-care (01) ==
LOC: ONC 10:48
PROVIDERS: ATTEND Internal Medicine Hematology & Oncology
DX: C18.6 Malignant neoplasm of descending colon (principal); J44.9 Chronic obstructive pulmonary disease, unspecified; E27.8 Other specified disorders of adrenal gland; Z72.0 Tobacco use
CPT/HCPCS: 80053; 85025; G0463; 99213

== ENCOUNTER → 2019-08-17 | Outpatient (CLI) | payer OTHER ==
[~2019-08-17] MED LIST changes: +CATHETER FLUSH 10 ML SYR IV PRN; +HOLD METFORMIN - RECEIVED CONTRAST 20 ML VIAL IV SCH; +IOHEXOL 350 MG/ML 100 ML (OMNIPAQUE 350) VIAL IV ONE; +NS 100 ML (IVPB) BAG IV ONE
--- NOTE | 2019-08-17 15:25 | Diagnostic Imaging Report ---
EXAMINATION: CT Abdomen with and without intravenous contrast. TECHNIQUE: Precontrast acquisitions were acquired through the abdomen . Multiple contiguous axial images were obtained through the abdomen after the administration of intravenous contrast. All CT scans use one or more of the following dose optimizing techniques: automated exposure control, MA and/or KvP adjustment based on a patient size and exam type, or iterative reconstruction. HISTORY: Adrenal nodules. COMPARISON: 02/13/2019. FINDINGS: Limited views of the lower thorax show coronary artery calcifications. The liver is normal without focal lesion. There is no biliary ductal dilation. Gallbladder is normal. Pancreas is normal. Spleen is normal. The right adrenal nodule is unchanged in size measuring 2.3 x 1.6 cm. The precontrast attenuation is -7 Hounsfield units consistent with adenoma. In addition, the relative and absolute washout are 95 and 84% respectively, both consistent with an adenoma. On the left, there are two additional adrenal lesions which both measure approximately 11 mm and are unchanged in size. The medial lesion has a precontrast attenuation of 1 Hounsfield unit consistent with an adenoma. The relative washout is 54% which is consistent with an adenoma as well. The more lateral nodule has a precontrast attenuation of 20 Hounsfield units and a postcontrast attenuation 97 with delayed attenuation of 44 Hounsfield units. The absolute and relative washouts are 69 and 53% which are both consistent with adenomas. The kidneys are normal. There is no hydronephrosis. Visualized bowel is normal in caliber without obstruction or inflammation. No free fluid or air. No abdominal lymphadenopathy. Aorta is normal in caliber without aneurysm. There are no suspicious osseus lesions. IMPRESSION: 1. Stable adrenal adenomas, these can be considered benign without further follow-up. Dictated by: Dictated on workstation # [id number]
== END ==
LOC: RAD 13:24
PROVIDERS: ATTEND Internal Medicine Hematology & Oncology
DX: D35.01 Benign neoplasm of right adrenal gland (principal); D35.02 Benign neoplasm of left adrenal gland
CPT/HCPCS: 74170

== ENCOUNTER 2019-12-19 05:44 | Outpatient (CLI) | payer OTHER ==
[~2019-12-19] VITALS: Ht 177 cm; Wt 92.7 kg
[~2019-12-19 05:44] MED LIST changes: -CATHETER FLUSH 10 ML SYR IV PRN; -HOLD METFORMIN - RECEIVED CONTRAST 20 ML VIAL IV SCH; -IOHEXOL 350 MG/ML 100 ML (OMNIPAQUE 350) VIAL IV ONE; -NS 100 ML (IVPB) BAG IV ONE
== END 2019-12-19 13:05 ==
LOC: PREOP 05:44
PROVIDERS: ATTEND Surgery
DX: Z01.818 Encounter for other preprocedural examination (principal)

== ENCOUNTER 2019-12-25 08:40 | Day surgery (SDC) | payer OTHER ==
[~2019-12-25] VITALS: Ht 177 cm; Wt 92.7 kg
[2019-12-25] VITALS (7 sets, daily range): BP systolic 104–137; BP diastolic 55–85
[2019-12-25] MEDS ORDERED: LACTATED RINGERS 1,000 ML IV ONE (08:49)
[2019-12-25] MEDS ORDERED: LACTATED RINGERS 1,000 ML IV STA (09:00)
--- NOTE | 2019-12-25 09:09 | Progress Note-Pre Operative ---
Pre-Operative Progress Note H&P Reviewed The H&P was reviewed, patient examined and no changes noted. Time Seen by Provider: 09:07 Date H&P Reviewed: Dec 25, 2019 Time H&P Reviewed: 09:07 Pre-Operative Diagnosis: Hx of Colon CA RADHA BENAVIDES DO Dec 25, 2019 09:09
[2019-12-25] MEDS ORDERED: PROPOFOL INJECTION 50 ML IV ONE (09:32)
[2019-12-25] MEDS ORDERED: MIDAZOLAM 2 MG/2 ML (VERSED) VIAL ONE (09:32)
--- NOTE | 2019-12-25 10:09 | Progress Note-Post Operative ---
Post-Operative Progess Note Surgeon (s)/Racing Mechanic (s) Surgeon RADHA BENAVIDES DO Racing Mechanic: MARRY Shelton Pre-Operative Diagnosis Hx of Colon CA Post-Operative Diagnosis Colon polyps int hemorrhoids Procedure & Operative Findings Date of Procedure 12/25/19 Procedure Performed/Findings Colon with snare Anesthesia Type IV sedation by DIRECTOR RECREATION CENTER Estimated Blood Loss Estimated blood loss (mL): scant Specimens/Packing Specimens Removed Asc x 2 Transverse Descending colon polyp RADHA BENAVIDES DO Dec 25, 2019 10:09
--- NOTE | 2019-12-25 10:10 | Endoscopy Discharge Instruct ---
Endo Procedure/Findings Findings 1.: Polyp 2.: Internal Hemorrhoids Discharge Instructions - Activity: You might feel a little sleepy until tomorrow. This is due to the medicine you received to relax you. Until tomorrow, you should: NOT drive a car, operate machinery or power tools. NOT drink any alcoholic beverages. NOT make any important decisions or sign importortant papers. Do not return to work until tomorrow, unless otherwise instructed. Resume previous activities tomorrow. Diet: Start by taking liquids. If you tolerate liquids, advance to solid food. 1.: Colonoscopy in 1 year Notify Physician - If you experience excessive bleeding, unusual abdominal pain, fever, or chest pain, contact your doctor immediately. RADHA BENAVIDES DO Dec 25, 2019 10:10
--- NOTE | 2019-12-25 12:39 | Anesthesia-General Post-Op ---
MAC Patient Condition Mental Status/LOC: Same as Preop Cardiovascular: Satisfactory Nausea/Vomiting: Absent Respiratory: Satisfactory Pain: Controlled Complications: Absent Post Op Complications Complications None Follow Up Care/Instructions Patient Instructions None needed. Anesthesiology Discharge Order Discharge Order Patient is doing well, no complaints, stable vital signs, no apparent adverse anesthesia problems. No complications reported per nursing. IVANNA DE LA CRUZ CRNA Dec 25, 2019 12:39
--- NOTE | 2019-12-26 04:52 | OPERATIVE REPORT ---
DATE OF SERVICE: 12/25/2019 PREOPERATIVE DIAGNOSIS: History of colon cancer, need for surveillance colonoscopy. POSTOPERATIVE DIAGNOSES: Colon polyps, internal hemorrhoids. PROCEDURE: Colonoscopy with snare polypectomy. SURGEON: Jacky Hollins DO PROBATION MANAGER: Raquel Johnson MS3. SPECIMEN: Two polyps from the ascending colon, one from the transverse colon, one from the descending colon. BLOOD LOSS: Scant. FLUIDS: Per anesthesia. POSTOPERATIVE CONDITION: Stable. INDICATION FOR PROCEDURE: The patient is a 74-year-old male who has a history of colon cancer, had a left colon resection and needed a surveillance colonoscopy. FINDINGS: The patient had large polyps, 2 large polyps taken in 2 pieces in the ascending colon then he had a large polyp in transverse colon and then another large polyp in the descending colon. Removed and sent to pathology, he also had some internal hemorrhoids seen. PROCEDURE NOTE: After informed consent was obtained, the patient was brought to the endoscopy suite, placed in bed in left lateral decubitus position. He was administered IV sedation by the INSURANCE ACCOUNT ASSISTANT who then monitored his vitals the entire time, heart rate, blood pressure and pulse ox and the scope was inserted, pushed in to about [address] to the cecum, took a picture of appendiceal orifice, noted the ileocecal valve. In the ascending colon, saw 2 large polyps, had to take this in 2 snares to remove it. I then saw another one right next to it. Able to get to the cecum, took a picture of appendiceal orifice, noted the ileocecal valve and then slowly withdrew the scope insufflating to look circumferentially at the reyes looking the cecum, up the ascending colon to the hepatic flexure, then down the transverse colon then into another large polyp, did snare polypectomy of this as well. Continued down into the descending colon, saw another polyp, did another snare polypectomy and then down saw the spot of previous anastomosis. Actually could see some ping and took a picture down into the rectum, retroflexed in rectal vault, saw some minimal internal hemorrhoids, took a picture of this and then removed the scope. The patient tolerated the procedure, he is recovered in endoscopy suite. Job ID: [id number] DocumentID: [id number] Dictated Date: 12/25/2019 18:39:22 Histology Specialist Date: 12/26/2019 04:50:09 Dictated By: JACKY HOLLINS DO
== END 2019-12-25 10:58 | disposition home or self-care (01) ==
LOC: ENDO 08:40
PROVIDERS: ATTEND Surgery
DX: Z09 Encounter for follow-up examination after completed treatment for conditions other than malignant neoplasm (principal); D12.2 Benign neoplasm of ascending colon; D12.3 Benign neoplasm of transverse colon; D12.4 Benign neoplasm of descending colon; K63.5 Polyp of colon; K64.8 Other hemorrhoids; F17.210 Nicotine dependence, cigarettes, uncomplicated; Z85.038 Personal history of other malignant neoplasm of large intestine; Z86.010 Personal history of colon polyps; J44.9 Chronic obstructive pulmonary disease, unspecified; M06.9 Rheumatoid arthritis, unspecified; Z79.899 Other long term (current) drug therapy
CPT/HCPCS: 88305

== ENCOUNTER 2020-07-25 12:32 | Outpatient (RCR) | payer OTHER ==
[2020-07-25 12:57] LABS: BASOPHILS # (AUTO) 0.1 10^3/uL (0.0-0.1); BASOPHILS % (AUTO) 1 % (0-10); EOSINOPHILS % (AUTO) 0 % (0-10); HEMATOCRIT 44 % (40-54); HEMOGLOBIN 14.6 g/dL (13.3-17.7); LYMPHOCYTES % (AUTO) 22 % (12-44); MEAN CORPUSCULAR HEMOGLOBIN 33 pg (25-34); MEAN CORPUSCULAR HGB CONC 34 g/dL (32-36); MEAN CORPUSCULAR VOLUME 99 fL (80-99); MEAN PLATELET VOLUME 12.4 fL (9.0-12.2); MONOCYTES % (AUTO) 11 % (0-12); NEUTROPHILS # (AUTO) 5.8 10^3/uL (1.8-7.8); NEUTROPHILS % (AUTO) 65 % (42-75); PLATELET COUNT 147 10^3/uL (130-400); WHITE BLOOD COUNT 8.9 10^3/uL (4.3-11.0)
[2020-07-25 13:21] LABS: ALANINE AMINOTRANSFERASE 37 U/L (0-55); ALBUMIN 4.1 GM/DL (3.2-4.5); ALKALINE PHOSPHATASE 65 U/L (40-136); BILIRUBIN,TOTAL 0.4 MG/DL (0.1-1.0); BUN/CREATININE RATIO 18; CALCIUM 9.1 MG/DL (8.5-10.1); CARBON DIOXIDE 22 MMOL/L (21-32); CHLORIDE 105 MMOL/L (98-107); CREATININE SERUM 0.94 MG/DL (0.60-1.30); GFR ESTIMATED > 60; GLUCOSE 96 MG/DL (70-105); POTASSIUM 4.4 MMOL/L (3.6-5.0); SODIUM 138 MMOL/L (135-145); TOTAL PROTEIN 7.3 GM/DL (6.4-8.2)
== END 2020-10-23 | disposition home or self-care (01) ==
LOC: ONC 12:32
PROVIDERS: ATTEND Internal Medicine Hematology & Oncology
DX: C18.6 Malignant neoplasm of descending colon (principal); J44.9 Chronic obstructive pulmonary disease, unspecified; E27.8 Other specified disorders of adrenal gland; E66.9 Obesity, unspecified; Z68.28 Body mass index [BMI] 28.0-28.9, adult; Z98.890 Other specified postprocedural states; Z90.49 Acquired absence of other specified parts of digestive tract; Z72.0 Tobacco use; Z79.899 Other long term (current) drug therapy
CPT/HCPCS: 80053; 82378; 85025; 99213

== ENCOUNTER → 2020-12-26 | Outpatient (CLI) | payer OTHER ==
[~2020-12-26] VITALS: Ht 180.3 cm; Wt 90.3 kg
== END | disposition home or self-care (01) ==
LOC: PREOP 05:42
PROVIDERS: ATTEND Surgery
DX: Z01.818 Encounter for other preprocedural examination (principal)

== ENCOUNTER 2021-01-06 07:07 | Day surgery (SDC) | payer OTHER ==
[~2021-01-06] VITALS: Ht 180.3 cm; Wt 90.3 kg
[2021-01-06] MEDS ORDERED: LACTATED RINGERS 1,000 ML IV STA (07:18)
[2021-01-06] MEDS ORDERED: LACTATED RINGERS 1,000 ML IV ONE (07:22)
[2021-01-06] MEDS ORDERED: PROPOFOL INJECTION 50 ML IV ONE (07:32)
[2021-01-06 07:44] VITALS: BP 130/69
--- NOTE | 2021-01-06 08:11 | Progress Note-Pre Operative ---
Pre-Operative Progress Note H&P Reviewed The H&P was reviewed, patient examined and no changes noted. Time Seen by Provider: 08:09 Date H&P Reviewed: Jan 06, 2021 Time H&P Reviewed: 08:09 Pre-Operative Diagnosis: Hx of polyps RADHA BENAVIDES DO Jan 06, 2021 08:11
[2021-01-06 09:15] VITALS: BP 95/54
--- NOTE | 2021-01-06 09:18 | Progress Note-Post Operative ---
Post-Operative Progess Note Surgeon (s)/Personal Investment Adviser (s) Surgeon RADHA BENAVIDES DO Personal Investment Adviser: MARRY Rosado Pre-Operative Diagnosis Hx of polyps Post-Operative Diagnosis Polyps diverticula int hemorrhoids Procedure & Operative Findings Date of Procedure 01/06/21 Procedure Performed/Findings Colon with snare PROCEDURE NOTE: After informed consent was obtained, the patient was brought to the endoscopy suite, placed in bed in left lateral decubitus position. He was administered IV sedation by the COREMAKER FLOOR who then monitored his vitals the entire time, heart rate, blood pressure and pulse ox and the scope was inserted, pushed all the way to about 100 cm and pushed into the cecum, took a picture of appendiceal orifice and noted the ileocecal valve. Then slowly withdrew the scope insufflating to look circumferentially at the reyes starting in the cecum, up the ascending colon; where I found a flat polyp and did a snare polypectomy. Continued up to the hepatic flexure, then down the transverse colon; where I found another polyp and did another snare polypectomy. To the splenic flexure and into the descending colon; here I found 3 large polyps and again performed snare polypectomies. Then down into the remnant of the sigmoid and took a picture of the anastomosis. Finally into the rectal vault and retroflexed the scope. Took a picture of the internal hemorrhoids. The patient tolerated the procedure. He was recovered in endoscopy suite. Anesthesia Type IV sedation by COREMAKER FLOOR Estimated Blood Loss Estimated blood loss (mL): scant Specimens/Packing Specimens Removed asc colon transverse colon desc colon x 3 RADHA BENAVIDES DO Jan 06, 2021 09:18
--- NOTE | 2021-01-06 09:19 | Endoscopy Discharge Instruct ---
Endo Procedure/Findings Findings 1.: Polyp 2.: Diverticulosis 3.: Internal Hemorrhoids Discharge Instructions - Activity: You might feel a little sleepy until tomorrow. This is due to the medicine you received to relax you. Until tomorrow, you should: NOT drive a car, operate machinery or power tools. NOT drink any alcoholic beverages. NOT make any important decisions or sign importortant papers. Do not return to work until tomorrow, unless otherwise instructed. Resume previous activities tomorrow. Diet: Start by taking liquids. If you tolerate liquids, advance to solid food. 1.: Colonscopy in 3 years Notify Physician - If you experience excessive bleeding, unusual abdominal pain, fever, or chest pain, contact your doctor immediately. RADHA BENAVIDES DO Jan 06, 2021 09:19
[2021-01-06 09:20] VITALS: BP 106/57
[2021-01-06 09:25] VITALS: BP 106/57
[2021-01-06 09:55] VITALS: BP 106/57
--- NOTE | 2021-01-06 12:38 | Anesthesia-General Post-Op ---
MAC Patient Condition Mental Status/LOC: Same as Preop Cardiovascular: Satisfactory Nausea/Vomiting: Absent Respiratory: Satisfactory Pain: Controlled Complications: Absent Post Op Complications Complications None Follow Up Care/Instructions Patient Instructions None needed. Anesthesiology Discharge Order Discharge Order Patient is doing well, no complaints, stable vital signs, no apparent adverse anesthesia problems. No complications reported per nursing. WHIT OSPINA CRNA Jan 06, 2021 12:38
== END 2021-01-06 09:55 | disposition home or self-care (01) ==
LOC: ENDO 07:07
PROVIDERS: ATTEND Surgery
DX: K63.5 Polyp of colon (principal); D12.3 Benign neoplasm of transverse colon; D12.4 Benign neoplasm of descending colon; K57.30 Diverticulosis of large intestine without perforation or abscess without bleeding; K64.8 Other hemorrhoids; J44.9 Chronic obstructive pulmonary disease, unspecified; F17.210 Nicotine dependence, cigarettes, uncomplicated; Z79.899 Other long term (current) drug therapy
CPT/HCPCS: 88305

== ENCOUNTER → 2021-01-23 | Outpatient (CLI) | payer OTHER ==
[2021-01-23 10:21] LABS: BASOPHILS # (AUTO) 0.1 10^3/uL (0.0-0.1); BASOPHILS % (AUTO) 1 % (0-10); EOSINOPHILS # (AUTO) 0.1 10^3/uL (0.0-0.3); EOSINOPHILS % (AUTO) 1 % (0-10); HEMATOCRIT 46 % (40-54); HEMOGLOBIN 15.3 g/dL (13.3-17.7); LYMPHOCYTES # (AUTO) 2.1 10^3/uL (1.0-4.0); LYMPHOCYTES % (AUTO) 25 % (12-44); MEAN CORPUSCULAR HEMOGLOBIN 33 pg (25-34); MEAN CORPUSCULAR HGB CONC 34 g/dL (32-36); MEAN CORPUSCULAR VOLUME 97 fL (80-99); MEAN PLATELET VOLUME 13.1 fL (9.0-12.2); MONOCYTES # (AUTO) 1.4 10^3/uL (0.0-1.0); MONOCYTES % (AUTO) 16 % (0-12); NEUTROPHILS % (AUTO) 58 % (42-75); PLATELET COUNT 162 10^3/uL (130-400); WHITE BLOOD COUNT 8.6 10^3/uL (4.3-11.0)
[2021-01-23 10:45] LABS: ALBUMIN 4.1 GM/DL (3.2-4.5); BILIRUBIN,TOTAL 0.5 MG/DL (0.1-1.0); CALCIUM 9.7 MG/DL (8.5-10.1); CREATININE SERUM 1.08 MG/DL (0.60-1.30); POTASSIUM 4.3 MMOL/L (3.6-5.0); TOTAL PROTEIN 7.7 GM/DL (6.4-8.2)
== END ==
LOC: EDSTATUS 10-24 13:19 → ONC 10:13
PROVIDERS: ATTEND Internal Medicine Hematology & Oncology
DX: C18.6 Malignant neoplasm of descending colon (principal); E27.8 Other specified disorders of adrenal gland; J44.9 Chronic obstructive pulmonary disease, unspecified; E66.9 Obesity, unspecified; Z90.49 Acquired absence of other specified parts of digestive tract; Z72.0 Tobacco use
CPT/HCPCS: 80053; 82378; 85025; 99213

== ENCOUNTER → 2021-05-26 | Outpatient (CLI) | payer OTHER ==
[~2021-05-26] MED LIST changes: +RT-ALBUTEROL SULF 2.5 MG/3 ML PRE-MIX VIAL INH ONE
== END ==
LOC: RT 13:00
PROVIDERS: ATTEND Nurse Practitioner
DX: J44.9 Chronic obstructive pulmonary disease, unspecified (principal); J98.8 Other specified respiratory disorders
CPT/HCPCS: 94060; 94621; 94726; 94729

== ENCOUNTER 2021-07-22 10:07 | Outpatient (RCR) | payer OTHER ==
[~2021-07-22 10:07] MED LIST changes: -RT-ALBUTEROL SULF 2.5 MG/3 ML PRE-MIX VIAL INH ONE
[2021-07-22 10:15] LABS: EOSINOPHILS # (AUTO) 0.1 10^3/uL (0.0-0.3); EOSINOPHILS % (AUTO) 1 % (0-10); HEMATOCRIT 45 % (40-54)
[2021-07-22 10:17] LABS: BASOPHILS # (AUTO) 0.1 10^3/uL (0.0-0.1); BASOPHILS % (AUTO) 1 % (0-10); LYMPHOCYTES # (AUTO) 2.1 10^3/uL (1.0-4.0); LYMPHOCYTES % (AUTO) 25 % (12-44); MEAN CORPUSCULAR HEMOGLOBIN 32 pg (25-34); MEAN CORPUSCULAR HGB CONC 33 g/dL (32-36); MEAN CORPUSCULAR VOLUME 96 fL (80-99); MONOCYTES # (AUTO) 1.2 10^3/uL (0.0-1.0); MONOCYTES % (AUTO) 14 % (0-12); NEUTROPHILS % (AUTO) 59 % (42-75); PLATELET COUNT 146 10^3/uL (130-400); WHITE BLOOD COUNT 8.5 10^3/uL (4.3-11.0)
[2021-07-22 10:33] LABS: ALBUMIN 4.2 GM/DL (3.2-4.5); BILIRUBIN,TOTAL 0.4 MG/DL (0.1-1.0); CALCIUM 9.1 MG/DL (8.5-10.1); CREATININE SERUM 1.16 MG/DL (0.60-1.30); POTASSIUM 4.3 MMOL/L (3.6-5.0); TOTAL PROTEIN 7.9 GM/DL (6.4-8.2)
== END 2021-08-09 | disposition home or self-care (01) ==
LOC: ONC 10:07
PROVIDERS: ATTEND Internal Medicine Hematology & Oncology
DX: C18.9 Malignant neoplasm of colon, unspecified (principal); E66.9 Obesity, unspecified
CPT/HCPCS: 36415; 80053; 82378; 85025; 99213

== ENCOUNTER 2022-07-14 09:36 | Outpatient (RCR) | payer OTHER | END 2022-08-09 | disposition home or self-care (01) | LOC: ONC 09:36 | PROVIDERS: ATTEND Internal Medicine Hematology & Oncology | DX: C18.9 Malignant neoplasm of colon, unspecified (principal); E66.9 Obesity, unspecified ==

== ENCOUNTER → 2022-10-20 | Outpatient (CLI) | payer OTHER ==
--- NOTE | 2022-10-20 16:03 | Diagnostic Imaging Report ---
EXAMINATION: Chest 2 view HISTORY: Smoking history COMPARISON: 02/26/2014 FINDINGS: The lungs are clear without edema or pneumonia. No pleural effusion or pneumothorax. Heart size is normal. IMPRESSION: 1. Clear lungs. Dictated by: Dictated on workstation # [id number]
== END ==
LOC: RAD 10:00
PROVIDERS: ATTEND Surgery
DX: Z87.891 Personal history of nicotine dependence (principal)
CPT/HCPCS: 71046

== ENCOUNTER 2022-10-22 05:34 | Outpatient (CLI) | payer OTHER ==
[~2022-10-22] VITALS: Ht 180 cm; Wt 83.8 kg
[2022-10-23] MEDS ORDERED: TIOT4MIS3 IH (13:47)
[2022-10-23] MEDS ORDERED: MULT-1136 PO (13:47)
== END 2022-10-23 14:07 | disposition home or self-care (01) ==
LOC: PREOP 05:34
PROVIDERS: ATTEND Surgery
DX: Z01.818 Encounter for other preprocedural examination (principal)

== ENCOUNTER → 2022-12-29 | Outpatient (CLI) | payer OTHER ==
[~2022-12-29] MED LIST changes: +MULT-1136 PO; +TIOT4MIS3 IH
--- NOTE | 2022-12-29 15:05 | Diagnostic Imaging Report ---
PROCEDURE: CT abdomen and pelvis without contrast. TECHNIQUE: Multiple contiguous axial images were obtained through the abdomen and pelvis without the use of intravenous contrast. Auto Exposure Controls were utilized during the CT exam to meet ALARA standards for radiation dose reduction. INDICATION: Abdominal pain. COMPARISON is made with prior CT from 08/17/2019. The lung bases are clear. Liver and gallbladder are unremarkable. Pancreas and spleen are unremarkable. A low attenuation bilateral adrenal masses appears stable and again most consistent with adenomas. No renal calculi or hydronephrosis is identified. Aorta is calcified but nonaneurysmal. Bowel loops are normal caliber. There is no obstruction. There is no ascites. Bladder is decompressed. The prostate is enlarged. IMPRESSION: 1. Stable bilateral adrenal adenomas. 2. Prostatomegaly. 3. No acute feature identified. Dictated by: Dictated on workstation # [id number]
== END ==
LOC: RAD 11:01
PROVIDERS: ATTEND Family Medicine
DX: Z01.89 Encounter for other specified special examinations (principal); D35.02 Benign neoplasm of left adrenal gland; D35.01 Benign neoplasm of right adrenal gland; N40.0 Benign prostatic hyperplasia without lower urinary tract symptoms
CPT/HCPCS: 74176